=== PATIENT | female | born 1985 | race Caucasian/White ===

== ENCOUNTER 2019-07-09 06:04 | Inpatient (IN) | payer BC ==
[~2019-07-09 06:04] MED LIST: Buffered Lidocaine 1% SYRIN* 1 ML/SYRINGE INTRADERM ONE; Famotidine IV* 10 MG/ML 2 ML (20 mg) IV ONE; Lactated Ringers 1000 ML Bag* 1,000 ML IV SCH; Sodium Citrate/Citric Acid* 15 ML UDC PO ONE
[2019-07-09] MEDS ORDERED: ceFOXitin 2 GM IVPREMIX* 2 GM/50 ML BAG IVPB ONE (07:00)
[2019-07-09 07:06] LABS: Urine Benzodiazepine Screen None Detected (None Detect); Urine Opiates Screen None Detected (None Detect)
[2019-07-09] MEDS ORDERED: fentaNYL* 50 MCG/ML 2 ML VIAL (100 MCG VIAL) IV PRN (09:15)
[2019-07-09] MEDS ORDERED: Naloxone* 0.4 MG/ML 1 ML VIAL IV PRN ×2 (09:15)
[2019-07-09] MEDS ORDERED: Scopolamine 1.5 mg* PATCH TRANSDERM PRN (09:15)
[2019-07-09] MEDS ORDERED: Ondansetron INJ* 2 MG/ML VIAL IV PRN (09:15)
[2019-07-09] MEDS ORDERED: HYDROmorphone INJ1* 1 MG/ML SYRINGE IV PRN (09:15)
[2019-07-09] MEDS ORDERED: oxyCODONE/Acetamin 5/325 MG* TAB PO PRN ×2 (09:15)
[2019-07-09] MEDS ORDERED: DiMENhydriNATE IV* 50 MG/ML VIAL IV PUSH PRN (09:15)
[2019-07-09] MEDS ORDERED: HYDROmorphone INJ* 0.5 MG/0.5 ML SYRINGE IV PRN (09:45)
[2019-07-09] MEDS ORDERED: Oxytocin in LR* 20 UNITS/1,000 ML BAG IVPB ONE (10:14)
[2019-07-09] MEDS ORDERED: Glycerin ADULT SUPP PR PRN (10:25)
[2019-07-09] MEDS ORDERED: Witch Hazel PAD* JAR TOPICAL PRN (10:25)
[2019-07-09] MEDS ORDERED: Zolpidem TAB* 5 MG PO PRN (10:25)
[2019-07-09] MEDS ORDERED: Dibucaine 1% 28.35 GM TUBE PR PRN (10:25)
[2019-07-09] MEDS: Nalbuphine* 10 MG/ML 1 ML VIAL IV PRN ×2 (10:53→18:02)
[2019-07-09] MEDS ORDERED: Lactated Ringers 1000 ML Bag* 1,000 ML IV SCH (11:00)
[2019-07-09] MEDS ORDERED: Oxytocin in LR* 20 UNITS/1,000 ML BAG IVPB SCH (11:00)
[2019-07-09] MEDS: Ketorolac INJ* 30 MG/ML 1 ML VIAL IV SCH ×4 (12:02→23:49)
[2019-07-09] MEDS: Simethicone TAB* 80 MG TAB.CHEW PO SCH ×3 (12:04→21:03)
--- NOTE | 2019-07-09 14:38 | OP ---
DATE OF OPERATION: 07/09/19 - ROOM #116 DATE OF : 81 SURGEON: Dr. Martínez. ADHESIVE PRIMER: Aurea Crandall CNM ANESTHESIA: Spinal. PRE-OP DIAGNOSIS: Breech presentation. 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 PROCEDURE: Low transverse section. ESTIMATED BLOOD LOSS: 600 cc. FINDINGS: This is a 34-year-old, 4, para 0, who presented for breech presentation, had an unsuccessful external version attempt, and for this reason , we decided on an elective primary section. At the time of primary section, she had a viable male, the Apgars were 9 and 9. There was a true knot in the cord. Weight was 7 pounds 7 ounces and the head was wedged into the right cornua. The right fallopian tube was absent. The left tube and ovary appeared normal. DESCRIPTION OF PROCEDURE: The patient identified, procedure identified as a section. The patient was taken to the operating room, prepped and draped in the usual fashion. In left lateral recumbent position under spinal anesthesia, a Pfannenstiel incision was made in the abdomen and carried down through fat, fascia, and peritoneum. A bladder flap was created via sharp dissection. Transverse incision was made in the lower uterine segment and extended laterally using blunt dissection. The above infant was delivered in the breech extraction manner without difficulty. Cord was doubly clamped and cut and the infant was handed to the awaiting applicator sprayer. Cord blood was obtained. Placenta delivered manually. The uterus was wiped out with wet lap sponge. The uterine incision was then closed using 0 Polysorb in a running fashion. Good hemostasis was verified. A second layer was used to imbricate the first layer. Good hemostasis again verified. The uterus was placed back in the abdominal cavity. At this point, there was some hypotension which was treated by Anesthesia with hydration and medication with good response. The peritoneum was then closed using 3-0 Polysorb in a running fashion. Good hemostasis achieved in the subrectus layers. The fascia was closed using 0 Polysorb in running fashion. Good hemostasis achieved in subcu. Copious irrigation was utilized and suctioned down. The skin was closed with 4-0 Monocryl in a subcuticular fashion. All sponge and instrument counts were correct. The patient returned to the recovery room in stable condition. [id number]/[facility] #: [id number]
[2019-07-09] MEDS: Ibuprofen TAB* 600 MG PO SCH ×3 (15:32→22:00)
[2019-07-09] MEDS: Docusate CAP* 100 MG PO SCH ×2 (17:46→21:03)
[2019-07-10] MEDS ORDERED: oxyCODONE/Acetamin 5/325 MG* TAB PO PRN
[2019-07-10] MEDS: oxyCODONE/Acetamin 5/325 MG* TAB PO PRN ×3 (03:36→21:13)
[2019-07-10] MEDS: Ibuprofen TAB* 600 MG PO SCH ×3 (04:00→18:46)
[2019-07-10 04:42] LABS: ABS Basophils 0.1 10^3/ul (0-0.2); ABS Eosinophils 0.1 10^3/ul (0-0.6); ABS Lymphocytes 2.8 10^3/ul (1.0-4.8); ABS Monocytes 0.8 10^3/ul (0-0.8); ABS Neutrophils 9.5 10^3/ul (1.5-7.7); Eosinophil % 0.4 %; Hematocrit 40 % (35-47); Hemoglobin 13.6 g/dL (12.0-16.0); Mean Corpuscular HGB Conc 35 g/dL (31-36); Mean Corpuscular Hemoglobin 34 pg (27-31); Mean Corpuscular Volume 98 fL (80-97); Mean Platelet Volume 9.1 fL (7.4-10.4); Nucleated Red Blood Cells % 0.1; Platelet Count 181 10^3/uL (150-450); Red Blood Count 4.05 10^6 /uL (3.70-4.87); Red Cell Distribution Width 13 % (10-15); White Blood Count 13.3 10^3/uL (3.5-10.8)
[2019-07-10] MEDS: Ibuprofen TAB* 600 MG PO PRN ×3 (06:04→20:47)
[2019-07-10] MEDS: Levothyroxine TAB* 150 MCG TAB PO SCH (06:04)
[2019-07-10] MEDS: Ketorolac INJ* 30 MG/ML 1 ML VIAL IV SCH (06:54)
[2019-07-10] MEDS: Docusate CAP* 100 MG PO SCH ×3 (08:41→20:47)
[2019-07-10] MEDS: Simethicone TAB* 80 MG TAB.CHEW PO SCH ×4 (08:41→20:47)
[2019-07-10] MEDS ORDERED: Ferrous Gluconate TAB* 324 MG TAB PO SCH (09:00)
[2019-07-11] MEDS: Levothyroxine TAB* 150 MCG TAB PO SCH (05:31)
[2019-07-11] MEDS: Ibuprofen TAB* 600 MG PO PRN ×3 (05:31→18:07)
[2019-07-11] MEDS: Docusate CAP* 100 MG PO SCH ×3 (08:50→20:45)
[2019-07-11] MEDS: oxyCODONE/Acetamin 5/325 MG* TAB PO PRN ×2 (08:50→14:12)
[2019-07-11] MEDS: Simethicone TAB* 80 MG TAB.CHEW PO SCH ×4 (08:50→20:45)
[2019-07-12] MEDS: Ibuprofen TAB* 600 MG PO PRN ×2 (00:30→06:37)
[2019-07-12] MEDS: oxyCODONE/Acetamin 5/325 MG* TAB PO PRN (02:11)
[2019-07-12] MEDS: Levothyroxine TAB* 150 MCG TAB PO SCH (06:37)
[2019-07-12 08:15] VITALS: BP 114/71
[2019-07-12] MEDS: Docusate CAP* 100 MG PO SCH (09:05)
[2019-07-12] MEDS: Simethicone TAB* 80 MG TAB.CHEW PO SCH (09:05)
== END 2019-07-12 11:28 | disposition home or self-care (01) | DRG 540 ==
LOC: MCHOB 06:04
PROVIDERS: ADMIT Obstetrics & Gynecology; ATTEND Obstetrics & Gynecology
PROC: 10D00Z1 Extraction of Products of Conception, Low, Open Approach (ICD-10-PCS; principal; 2019-07-09 07:45)
DX: O32.1XX0 Maternal care for breech presentation, not applicable or unspecified (principal); O99.284 Endocrine, nutritional and metabolic diseases complicating childbirth; E03.9 Hypothyroidism, unspecified; O69.2XX0 Labor and delivery complicated by other cord entanglement, with compression, not applicable or unspecified; O34.00 Maternal care for unspecified congenital malformation of uterus, unspecified trimester; Q51.3 Bicornate uterus; Z3A.39 39 weeks gestation of pregnancy; Z37.0 Single live birth
CPT/HCPCS: 36415; 80307; 85025; A9270-GY; J0694; J1240; J1885; J2300